=== PATIENT | female | born 1975 | race Caucasian/White ===

== ENCOUNTER 2017-06-13 18:42 | Emergency (ER) | payer SELFPAY, OTHER ==
[2017-06-13] MEDS: IBUPROFEN 600 MG TAB PO (20:04)
== END 2017-06-13 20:40 | disposition home or self-care (01) ==
LOC: FTE 18:42
DX: M54.5 Low back pain (principal); M54.2 Cervicalgia; M25.561 Pain in right knee; M25.511 Pain in right shoulder
CPT/HCPCS: 73562; 99283-25